=== PATIENT | female | born 2005 | race Caucasian/White ===

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

== ENCOUNTER 2025-02-04 10:13 | Outpatient (CLI) | payer OTHER, SELFPAY ==
--- OUTSIDE RECORDS SUMMARY | 2024-12-22 14:59 | XMS_ITS | Encounter Summary ---
[facility] Organization [facility] Address [address] [place] [address] Care Team Providers Care Oyster Preparer Name Role Phone Bruno Erickson MD Primary Care Provider [phone]- [phone] Encounter Details Date Type Department Care Team (Late st Contact Info) Description 12/22/2024 2:59 PM EDT - 12/22/2024 3:49 PM EDT Emergency [facility] [address] [place] [address] Discharge Disposition: Left Without Being Seen Social History Tobacco Use Types Packs/Day Years Used Date Smoking Tobacco: Never Assessed Abuse Screen Answer Date Recorded Feels Unsafe at Home or Work/School no 12/22/2024 Feels Threatened by Someone no 12/08 Does Anyone Try to Keep You From Having Contact with Others or Doing Things Outside Your Home? no 12/22/2024 Physical Signs of Abuse Present no 12/22/2024 Housing Stability Answer Date Recorded Current Living Arrangements Not on file 12/2022 Potentially Unsafe Housing Conditions Not on holli e 01/15/2023 Family and Community Support Answer Héctor e Recorded Help with Day-to-Day Activities Not on file 01/15/2023 Lonely or Isolated Not on file 01/15/2023 Employment Answer Date Recorded Do you want help finding or keeping work or a pam b? Not on file 01/15/2023 Disabilities Answer Date Recorded Concentrating, Remembering, or Making Decisions Difficulty Not on file 01/15/2023 Doing Errands Independently Difficulty Not on fi le 01/15/2023 Education Answer Date Recorded Help with school or training? Not on file Preferred Language Not on file 01/15/2023 Estimated Date of Delivery Comme nts Yes 06/26/2025 Sex and Gender Information Value Date Recorded Sex Assigned at Not on file Legal Sex Female 12:30 PM EDT Gender Identity Not on file Sexual Orientation Not on file documented as of this encounter Plan of Treatment Not on file documented as of this encounter Visit Diagnoses Not on filedocumented in this encounter Care Teams Oyster Preparer Relationship Specialty Start Date End Date Bruno Erickson MD [address] [place] [address] [place] [address] PCP - General Family Medicine 12/22/24 documented as of this encounter
--- OUTSIDE RECORDS SUMMARY | 2024-12-22 16:06 | XMS_ITS | Encounter Summary ---
Author Organization [facility] Address [address] [place] [address] Care Team Providers Care Chip Mucker Name Role Phone Bruno Erickson MD Primary Care Provider +1- [phone] Reason for Visit * Reason Comments Vaginal Bleeding - Encounter Details Date Type Department Care Team (Late st Contact Info) Description 12/22/2024 4:06 PM EDT - 12/22/2024 5:41 PM EDT Emergency [facility] EMERGENCY DEPARTMENT [address] [address] JeffSolitario MD [address] [place] [address] Threatened (Primary Dx) Discharge Disposition: Home or [...] 4:05 PM EDT Pooja Galan RN * [place] Suicide Severity Rating Scale (Screener/Recent Self-Report) Question [...] Everywhere. * Threatened Miscarriage: What to Know [id number] (Turkish) documented in this encounter Miscellaneous Notes * [...] symptoms. Pt is seeing Dr. Zarate at [facility]. Nurses Notes reviewed and agree, including [...] Component Value Units Date/Time CBC & Differential [[id number]] (Abnormal) Collected: 12/22/241615 Specimen: Blood Updated: 12/22/241622 Narrative: The following orders were created for panel order CBC & Differential. Procedure Abnormality Status --------- ------ CBC Auto Differential[[id number]] Abnormal Final result Please view results for these tests on the individual orders. hCG, Quantitative, [[id number]] Collected: 12/22/241615 Specimen: Blood Updated: 12/22/241706 HCG [...] 8,099 - 58,176 mIU/mL CBC Auto Differential [[id number]] (Abnormal) Collected: 12/22/241615 Specimen: Blood Updated: 12/22/241622 [...] diagnoses: Threatened Your Follow-Up Providers Go to [facility] EMERGENCY [facility]PARTMENT [place]. Specialty: Emergency Medicine Follow up details: If symptoms worsen [address] [facility] [address] your [facility] in 4-5 days. Contact information for after-discharge [...] - 10.80 10*3/mm3 12/22/2024 4:23 PM EDT [facility] RBC 3.78 3.77 - 5.28 10*6/mm3 12/22/2024 4:23 PM EDT [facility] Hemoglobin 11.9(L) 12.0 - 15.9 g/dL 12/22/2024 4:23 PM EDT [facility] Hematocrit 33.7(L) 34.0 - 46.6 % 12/22/2024 4:23 PM EDT [facility] MCV 89.2 79.0 - 97.0 fL 12/22/2024 4:23 PM EDT [facility] MCH 31.5 26.6 - 33.0 pg 12/22/2024 4:23 PM EDT [facility] MCHC 35.3 31.5 - 35.7 g/dL 12/22/2024 4:23 PM EDT [facility] RDW 12.8 12.3 - 15.4 % 12/22/2024 4:23 PM EDT [facility] RDW-SD 41.8 37.0 - 54.0 fl 12/22/2024 4:23 PM EDT [facility] MPV 11.4 6.0 - 12.0 fL 12/22/2024 4:23 PM EDT [facility] Platelets 241 140 - 450 10*3/mm3 12/22/2024 4:23 PM T [facility] Neutrophil % 67.2 42.7 - 76.0 % 12/22/2024 4:23 PM [facility] Lymphocyte % 26.4 19.6 - 45.3 % 12/22/2024 4:23 PM [facility] Monocyte % 4.1(L) 5.0 - 12.0 % 12/22/2024 4:23 PM [facility] Eosinophil % 1.1 0.3 - 6.2 % 12/22/2024 4:23 PM [facility] Basophil % 0.6 0.0 - 1.5 % 12/22/2024 4:23 PM [facility] Immature Grans % 0.6(H) 0.0 - 0.5 % 12/22/2024 4:23 PM [facility] Neutrophils, Absolute 5.62 1.70 - 7.00 10*3/mm3 12/22/2024 4:23 PM [facility] Lymphocytes, Absolute 2.21 0.70 - 3.10 10*3/mm3 12/22/2024 4:23 PM [facility] Monocytes, Absolute 0.34 0.10 - 0.90 10*3/mm3 12/22/2024 4:23 PM [facility] Eosinophils, Absolute 0.09 0.00 - 0.40 10*3/mm3 12/22/2024 4:23 PM [facility] Basophils, Absolute 0.05 0.00 - 0.20 10*3/mm3 12/22/2024 4:23 PM [facility] Immature Grans, Absolute 0.05 0.00 - 0.05 10*3/mm3 12/22/2024 4:23 PM [facility] Blood Venipuncture / Unknown 12/22/2024 4:16 PM EDT 12/22/2024 4:21 PM EDT us Solitario J Jeff MD LAB BLOOD ORDERABLES Final Resul t Performing Organization Address City/[facility]/ZIP Co de Phone Number [facility]
[address] [place] [address], [place] * Light Blue Top (12/22/2024 4:16 PM EDT) Extra Tube Hold for add-ons. 12/22/2024 4:32 PM EDT [facility] Comment:Auto resulted Blood Venipuncture / Unknown 12/22/2024 4:16 PM EDT 12/22/2024 4:21 PM EDT us Solitario Aguilar MD LAB BLOOD ORDER ONLY Final Resul t Performing Organization Address City/[facility] Co de Phone Number [facility]
[address] [facility] [address] [place] [address], [place] * Bates Top (12/22/2024 4:16 PM EDT) Extra Tube Hold for add-ons. 12/22/2024 4:32 PM EDT [facility] Comment:Auto resulted. Blood Venipuncture / Unknown 12/22/2024 4:16 PM EDT 12/22/2024 4:21 PM EDT us Solitario Aguilar MD LAB BLOOD ORDER ONLY Final Resul t Performing Organization Address City/[facility]/ZIP Co de Phone Number [facility]
[address] [place] [address], [place] * Gold Top - SST (12/22/2024 4:16 PM EDT) Extra Tube Hold for add-ons. 12/22/2024 4:32 PM EDT [facility] Comment:Auto resulted. Blood Venipuncture / Unknown 12/22/2024 4:16 PM EDT 12/22/2024 4:21 PM EDT us Solitario Aguilar MD LAB BLOOD ORDER ONLY Final Resul t Performing Organization Address City/[facility]/ZIP Co de Phone Number [facility]
[address] [place] [address], [place] * Lavender Top (12/22/2024 4:16 PM EDT) Extra Tube hold for add-on 12/22/2024 4:32 PM EDT [facility] Comment:Auto resulted Blood Venipuncture / Unknown 12/22/2024 4:16 PM EDT 12/22/2024 4:21 PM EDT us Solitario Aguilar MD LAB BLOOD ORDER ONLY Final Resul t Performing Organization Address [facility] Co de Phone Number [facility]
[address] [place] [address], [place] * Green Top (Gel) (12/22/2024 4:16 PM EDT) Extra Tube Hold for add-ons. 12/22/2024 4:32 PM EDT [facility] Comment:Auto resulted. Blood Venipuncture / Unknown 12/22/2024 4:16 PM EDT 12/22/2024 4:21 PM EDT us Solitario Aguilar MD LAB BLOOD ORDER ONLY Final Resul t Performing Organization Address City/[facility]/ZIP Co de Phone Number [facility]
[address] [place] [address], [place] * hCG, Quantitative, (12/22/2024 4:16 PM EDT) HCG Quantitative 39,368.00 mIU/mL 12/23/19 5:07 PM EDT [facility] Blood Venipuncture / Unknown 12/22/2024 4:16 PM EDT 12/22/2024 4:21 PM EDT Narrative [facility] - 12/22/2024 5:07 PM [...] MD LAB BLOOD ORDERABLES Final Resul t [facility]
[address] [place] [address], documented in this encounter Visit Diagnoses Diagnosis [...] 1605 documented in this encounter Care Teams Chip Mucker Relationship Specialty Start Date End Date Bruno Erickson MD [address] [place] [address] [place] [address] PCP - General Family Medicine 12/22/24 documented as of this encounter
--- OUTSIDE RECORDS SUMMARY | 2024-12-22 16:50 | XMS_ITS | Encounter Summary ---
Author Organization [facility] Address [address] [place] [address] Care Team Providers Care Government Affairs Director Name Role Phone Bruno Erickson MD Primary Care Provider +1- [phone] Encounter Details Date Type Department Care Team (Late st Contact Info) Description 12/22/2024 4:50 PM EDT Ancillary Procedure [facility] EMERGENCY [facility]PARTMENT [place] [address] [place] [address] Social History Tobacco Use Types [...] 4:05 PM EDT Pooja Galan RN * [place] Suicide Severity Rating Scale (Screener/Recent Self-Report) Question [...] on filedocumented in this encounter Care Teams Government Affairs Director Relationship Specialty Start Date End Date Bruno Erickson MD [address] [place] [address] [place] [address] PCP - General Family Medicine 12/22/24 documented as of this encounter
--- OUTSIDE RECORDS SUMMARY | 2025-02-04 10:24 | XMS_ITS | Clinical Summary ---
[facility] [address] [place] [address] Care Team Providers Care Director East Coast Sales Name Role Phone Bruno Erickson MD Primary Care Provider +1- [phone] Allergies No known active allergies Encounters Date Type Department Care Team Description 12/22/2024 4:50 PM EDT Ancillary Procedure [facility] [address] [place] [address] 12/22/2024 4:06 PM EDT - 12/22/2024 5:41 PM EDT Emergency [facility] [address] [place] [address] Jeff, Solitario Bear MD Threatened (Primary Dx) Discharge Disposition: Home or Self Care 12/22/2024 2:59 PM EDT - 12/22/2024 3:49 PM EDT Emergency [facility] [address] [facility] [place] [address] Discharge Disposition: Left Without Being Seen 12/22/2024 [...] Pneumococcal Vaccine 0-49 (1 of 1 - PPSV23, PCV20, or PCV21) 10/06/2011 04/11/2006, 02/22/2006, 01/11/2006 HPV VACCINES (2 [...] Hold for add-ons. 12/22/2024 4:32 PM EDT [facility] Comment:Auto resulted. Blood Venipuncture / Unknown 12/22/2024 4:16 PM EDT 12/22/2024 4:21 PM EDT us Solitario Aguilar MD LAB BLOOD ORDER ONLY Final Resul t Performing Organization Address City/[facility]/ZIP Co de Phone Number [facility]
[address] [facility] [address] [place] [address], [place] * Gold Top - SST (12/22/2024 4:16 PM EDT) Extra Tube Hold for add-ons. 12/22/2024 4:32 PM EDT [facility] Comment:Auto resulted. Blood Venipuncture / Unknown 12/22/2024 4:16 PM EDT 12/22/2024 4:21 PM EDT us Solitario Aguilar MD LAB BLOOD ORDER ONLY Final Resul t [facility]
[address] [facility] [address] [place] [address], [place] * Green Top (Gel) (12/22/2024 4:16 PM EDT) Extra Tube Hold for add-ons. 12/22/2024 4:32 PM EDT [facility] Comment:Auto resulted. Blood Venipuncture / Unknown 12/22/2024 4:16 PM EDT 12/22/2024 4:21 PM EDT us Solitario Aguilar MD LAB BLOOD ORDER ONLY Final Resul t [facility]
[address] [facility] [address] [place] [address], [place] * (ABNORMAL) CBC Auto Differential (12/22/2024 4:16 PM EDT) WBC 8.36 3.40 - 10.80 10*3/mm3 12/22/2024 4:23 PM EDT [facility] RBC 3.78 3.77 - 5.28 10*6/mm3 12/22/2024 4:23 PM EDT [facility] Hemoglobin 11.9(L) 12.0 - 15.9 g/dL 12/22/2024 4:23 PM EDT [facility] Hematocrit 33.7(L) 34.0 - 46.6 % 12/22/2024 4:23 PM EDT [facility] MCV 89.2 79.0 - 97.0 fL 12/22/2024 4:23 PM EDT [facility] MCH 31.5 26.6 - 33.0 pg 12/22/2024 4:23 PM EDT [facility] MCHC 35.3 31.5 - 35.7 g/dL 12/22/2024 4:23 PM EDT [facility] RDW 12.8 12.3 - 15.4 % 12/22/2024 4:23 PM EDT [facility] RDW-SD 41.8 37.0 - 54.0 fl 12/22/2024 4:23 PM EDT [facility] MPV 11.4 6.0 - 12.0 fL 12/22/2024 4:23 PM EDT [facility] Platelets 241 140 - 450 10*3/mm3 12/22/2024 4:23 PM EDT [facility] Neutrophil % 67.2 42.7 - 76.0 % 12/22/2024 4:23 PM EDT [facility] Lymphocyte % 26.4 19.6 - 45.3 % 12/22/2024 4:23 PM EDT [facility] Monocyte % 4.1(L) 5.0 - 12.0 % 12/22/2024 4:23 PM EDT [facility] Eosinophil % 1.1 0.3 - 6.2 % 12/22/2024 4:23 PM EDT [facility] Basophil % 0.6 0.0 - 1.5 % 12/22/2024 4:23 PM EDT [facility] Immature Grans % 0.6(H) 0.0 - 0.5 % 12/22/2024 4:23 PM EDT [facility] Neutrophils, Absolute 5.62 1.70 - 7.00 10*3/mm3 12/22/2024 4:23 PM EDT [facility] Lymphocytes, Absolute 2.21 0.70 - 3.10 10*3/mm3 12/22/2024 4:23 PM EDT [facility] Monocytes, Absolute 0.34 0.10 - 0.90 10*3/mm3 12/22/2024 4:23 PM EDT [facility] Eosinophils, Absolute 0.09 0.00 - 0.40 10*3/mm3 12/22/2024 4:23 PM EDT [facility] Basophils, Absolute 0.05 0.00 - 0.20 10*3/mm3 12/22/2024 4:23 PM EDT [facility] Immature Grans, Absolute 0.05 0.00 - 0.05 10*3/mm3 12/22/2024 4:23 PM EDT [facility] Blood Venipuncture / Unknown 12/22/2024 4:16 PM EDT 12/22/2024 4:21 PM EDT us Solitario Aguilar MD LAB BLOOD ORDERABLES Final Resul t [facility]
[address] [place] [address], [place] * Lavender Top (12/22/2024 4:16 PM EDT) Extra Tube hold for add-on 12/22/2024 4:32 PM EDT [facility] Comment:Auto resulted Blood Venipuncture / Unknown 12/22/2024 4:16 PM EDT 12/22/2024 4:21 PM EDT us Solitario gAuilar MD LAB BLOOD ORDER ONLY Final Resul t [facility]
[address] [facility] [address] [place] [address], [place] * Light Blue Top (12/22/2024 4:16 PM EDT) Extra Tube Hold for add-ons. 12/22/2024 4:32 PM EDT [facility] Comment:Auto resulted Blood Venipuncture / Unknown 12/22/2024 4:16 PM EDT 12/22/2024 4:21 PM EDT us Solitario Aguilar MD LAB BLOOD ORDER ONLY Final Resul t Performing Organization Address City/[facility]/ZIP Co de Phone Number [facility]
[address] [place] [address], [place] * hCG, Quantitative, (12/22/2024 4:16 PM EDT) HCG Quantitative 39,368.00 mIU/mL 12/23/19 5:07 PM EDT [facility] Blood Venipuncture / Unknown 12/22/2024 4:16 PM EDT 12/22/2024 4:21 PM EDT Narrative [facility] - 12/22/2024 5:07 PM EDT [...] MD LAB BLOOD ORDERABLES Final Resul t [facility]
[address] [facility] [address] [place] [address], [place] from Last 3 Months Insurance [facility] Care Teams Director [place] Sales Relationship Specialty Start Date End Date Bruno Erickson MD [address] [place] [address] [place] [address] PCP - General Family Medicine 12/22/24
--- OUTSIDE RECORDS SUMMARY | 2025-02-04 10:24 | XMS_ITS | Encounter Summary ---
[facility] [address] [place] [address] Care Team Providers Care Barrel Polisher Inside Name Role Phone Bruno Erickson MD Primary Care Provider +1- [phone] Encounter Details Date Type Department Care Team [...] on filedocumented in this encounter Care Teams Barrel Polisher Inside Relationship Specialty Start Date End Date Bruno Erickson MD [address] [place] [address] [place] [address] PCP - General Family Medicine 12/22/24 documented as of this encounter
--- NOTE | 2025-02-04 10:30 | US_ITS ---
PROCEDURE: US OB /MATERNAL DETAIL CLINICAL INDICATION: 20 week anatomy scan COMPARISON: US US OB <= 14 WEEKS FETUS from 12/10/2024 FINDINGS: Transabdominal sonographic images of the pelvis were obtained. From her established due date she is 19 weeks 4 days. Single viable intrauterine gestation. Cephalic position. Placenta: Right lateral posteriorplacenta grade 1. There is an average amount of fluid. The cervix appears satisfactory. Closed and measuring 3.1 cm in length. Complete survey performed and was unremarkable on the submitted images as in PACS. No discrete anomalies identified on survey imaging by technologist. Active fetus. Three-vessel cord with satisfactory umbilical cord insertion. 4- chamber heart noted. Situs, aortic arch, LVOT, RVOT, three-vessel view appear normal. Survey of brain & ventricles Unremarkable. Cerebellum, thalamus, choroid plexus, cisterna magna appear normal. Face and neck survey unremarkable. Profile, nasion, lips and nose appeared normal. Diaphragm and chest views unremarkable. Abdomen: Both kidneys noted and unremarkable. Stomach and bladder noted and satisfactory. Spine: Survey of the spine satisfactory with no anomalies identified nor imaged. Cervical, thoracic, lower spine appear normal. Both arms and legs noted. Amniotic Fluid: Adequate. MVP 4.30 cm Measurements: Average ultrasound age 20weeks 2days. Estimated due date by ultrasound age 0306/22/2025. Estimated weight 341g BPD = 20weeks 1day HC = 19weeks 6days AC = 21weeks 0 days FL = 19weeks 5days Growth Percentile= 83 Heart Rate = 149bpm Cerebellum = 18weeks 2days HC/AC is 1.09 FL/BPD is 0.67 FL/AC is 0.2 IMPRESSION: 1. Viable fetus in the cephalic presentation with a right lateral posterior placenta grade 1. 2. The fluid is within normal limits with an MVP 4.30 cm. 3. Anatomical scan appears normal. 4. biometry is consistent with the dates. Dictated by: Donn Jose MD 02/04/2025 11:25 Donn Jose MD in OV 02/04/2025 11:25
== END 2025-02-04 23:59 | disposition home or self-care (01) ==
LOC: RAD 10:14
PROVIDERS: PCP Family Medicine; Visit Provider Obstetrics & Gynecology
DX: O99.512 Diseases of the respiratory system complicating pregnancy, second trimester (principal); O20.9 Hemorrhage in early pregnancy, unspecified; J45.909 Unspecified asthma, uncomplicated; Z3A.19 19 weeks gestation of pregnancy
CPT/HCPCS: 76811

== ENCOUNTER 2025-03-12 11:15 | Outpatient (CLI) | payer OTHER, SELFPAY ==
[2025-03-12 10:49] LABS: Fetal Membrane Rupture (Rapid) Negative (Negative)
--- NOTE | 2025-03-12 11:30 | US_ITS ---
PROCEDURE: US OB FOLLOW UP CLINICAL INDICATION: position and ivan COMPARISON: US US OB <= 14 WEEKS FETUS from 12/10/2024 US US OB /MATERNAL DETAIL from 02/04/2025 FINDINGS: Transabdominal sonographic images of the pelvis were obtained. The following parameters are obtained: From her established due date she is 24weeks 4days Viable fetus in the cephalic presentation with a right posterior placenta grade 1. The cervix measures 3.08 cm in length. heart rate: 144bpm bpm. Amniotic fluid index: 10.4cm, MVP 4.45 cm No obvious anomalies evident. profile seen, stomach, bladder, kidneys, three-vessel cord, four chamber heart appear normal. IMPRESSION: 1. Viable fetus in the cephalic presentation with a right posterior placenta grade 1. 2. Fluid is within normal limits with an amniotic fluid index 10.4 cm, MVP 4.45 cm. 3. Limited anatomical scan appears normal. Dictated by: Donn Jose MD 03/12/2025 11:58 Donn Jose MD in OV 03/12/2025 11:58
--- OUTSIDE RECORDS SUMMARY | 2025-03-12 11:46 | XMS_ITS | Encounter Summary ---
Author Organization Healthcare Address [address] [id number] Care Team Providers Care Fiscal Services Manager Name Role Phone Bruno Erickson MD Primary Care Provider Geovanna vailable Reason for Visit * Reason Onset Date Comments [facility] Clinical Concern/Question 12/12/2024 Encounter Details Date Type Department Care Team (Late st Contact Info) Description 12/12/2024 Telephone Obstetrics & Gynecology [address] [place] [address] Carlos Gamboa MD [address] [place] [address] [facility] Clinical Concern/Question Social History [...] down, depressed, or hopeless Not at all 12/08 11:10 AM EDT Heather Pearce Patient Health Questionnaire-2 Score 0 12/08 11:10 AM EDT Heather Pearce * How [...] will be 12 wks tomorrow. Seen at [facility] Sun for vaginal bleeding. Pt was [...] call to yousif bolton. Best contact number: [phone] (mobile) Optimal time of day to reach caller: ANYTIME Additional comments/information from caller: None Note: Please do not reply to this message. Follow-up communication and further actions as a result of this message need to be communicated with the patient directly, if the patient is not active onMyChart. If the patient is active on MyChart, they will receive notification of the communication/outcome via [employer]. documented in this encounter Plan of Treatment [...] documented as of this encounter Care Teams Fiscal Services Manager Relationship Specialty Start Date End Date Bruno Erickson MD PCP - General Family Medicine 11/13/22 documented as of this encounter
--- OUTSIDE RECORDS SUMMARY | 2025-03-12 11:46 | XMS_ITS | Encounter Summary ---
Author Organization Healthcare Address [address] [id number] Care Team Providers Care Acute Care Nurse Practitioner Name Role Phone Bruno Erickson MD Primary Care Provider Geovanna vailable Reason for Visit * Reason Onset Date Comments Appointment 02/10/2025 Lm on vm to conf irm appt for 02/11 Encounter Details Date Type Department Care Team (Late st Contact Info) Description 02/10/2025 Telephone Obstetrics & Gynecology [address] [place] [address] Carlos Gamboa MD [address] [place] [address] Appointment (Lm on vm to confirm appt for 02/11) Social History Tobacco Use Types Packs/Day Years [...] documented as of this encounter Care Teams Acute Care Nurse Practitioner Relationship Specialty Start Date End Date Bruno Erickson MD PCP - General Family Medicine 11/13/22 documented as of this encounter
--- OUTSIDE RECORDS SUMMARY | 2025-03-12 11:46 | XMS_ITS | Encounter Summary ---
Author Organization Healthcare Address [address] [id number] Care Team Providers Care Turret Press Operator Name Role Phone Bruno Erickson MD Primary Care Provider Geovanna vailable Encounter Details Date Type Department Care Team (Late st Contact Info) Description 11/18/2024 Results Follow-Up Obstetrics & Gynecology [address] [place] [address] Carlos Gamboa MD [address] [place] [address] Social History Tobacco Use Types [...] documented as of this encounter Care Teams Turret Press Operator Relationship Specialty Start Date End Date Bruno Erickson MD PCP - General Family Medicine 11/13/22 documented as of this encounter
--- OUTSIDE RECORDS SUMMARY | 2025-03-12 11:46 | XMS_ITS | Clinical Summary ---
[facility] Organization [facility] Address [address] [place] [address] Care Team Providers Care Fast Food Server Name Role Phone Bruno Erickson MD Primary Care Provider +1- [phone] Allergies No known active allergies Encounters Date Type Department Care Team Description 12/22/2024 4:50 PM EDT Ancillary Procedure [facility] EMERGENCY DEPARTMENT [address] [place] [address] 12/22/2024 4:06 PM EDT - 12/22/2024 5:41 PM EDT Emergency [facility] EMERGENCY DEPARTMENT [address] [place] [address] Jeff, Solitario Bear MD Threatened (Primary Dx) Discharge Disposition: Home or Self Care 12/22/2024 2:59 PM EDT - 12/22/2024 3:49 PM EDT Emergency [facility] EMERGENCY DEPARTMENT [address] [facility] [place] [id number] Discharge Disposition: Left Without Being Seen 12/22/2024 [...] Hold for add-ons. 12/22/2024 4:32 PM EDT [facility] Comment:Auto resulted. Blood Venipuncture / Unknown 12/22/2024 4:16 PM EDT 12/22/2024 4:21 PM EDT us Solitario Aguilar MD LAB BLOOD ORDER ONLY Final Resul t Performing Organization Address City/[facility]/ZIP Co de Phone Number [facility]
[address] [facility] [address] [place] [address], [place] * Gold Top - SST (12/22/2024 4:16 PM EDT) Extra Tube Hold for add-ons. 12/22/2024 4:32 PM EDT [facility] Comment:Auto resulted. Blood Venipuncture / Unknown 12/22/2024 4:16 PM EDT 12/22/2024 4:21 PM EDT us Solitario Aguilar MD LAB BLOOD ORDER ONLY Final Resul t [facility]
[address] [facility] [address] [place] [address], [place] * Green Top (Gel) (12/22/2024 4:16 PM EDT) Extra Tube Hold for add-ons. 12/22/2024 4:32 PM EDT [facility] Comment:Auto resulted. Blood Venipuncture / Unknown 12/22/2024 4:16 PM EDT 12/22/2024 4:21 PM EDT us Solitario Aguilar MD LAB BLOOD ORDER ONLY Final Resul t [facility]
[address] [facility] [address] [place] [address], [place] * (ABNORMAL) CBC Auto Differential (12/22/2024 4:16 PM EDT) WBC 8.36 3.40 - 10.80 10*3/mm3 12/22/2024 4:23 PM EDT [facility] RBC 3.78 3.77 - 5.28 10*6/mm3 12/22/2024 4:23 PM EDT [facility] Hemoglobin 11.9(L) 12.0 - 15.9 g/dL 12/22/2024 4:23 PM EDT [facility] Hematocrit 33.7(L) 34.0 - 46.6 % 12/22/2024 4:23 PM EDT [facility] MCV 89.2 79.0 - 97.0 fL 12/22/2024 4:23 PM EDT [facility] MCH 31.5 26.6 - 33.0 pg 12/22/2024 4:23 PM EDT [facility] MCHC 35.3 31.5 - 35.7 g/dL 12/22/2024 4:23 PM EDT [facility] RDW 12.8 12.3 - 15.4 % 12/22/2024 4:23 PM EDT [facility] RDW-SD 41.8 37.0 - 54.0 fl 12/22/2024 4:23 PM EDT [facility] MPV 11.4 6.0 - 12.0 fL 12/22/2024 4:23 PM EDT [facility] Platelets 241 140 - 450 10*3/mm3 12/22/2024 4:23 PM EDT [facility] Neutrophil % 67.2 42.7 - 76.0 % 12/22/2024 4:23 PM EDT [facility] Lymphocyte % 26.4 19.6 - 45.3 % 12/22/2024 4:23 PM EDT [facility] Monocyte % 4.1(L) 5.0 - 12.0 % 12/22/2024 4:23 PM EDT [facility] Eosinophil % 1.1 0.3 - 6.2 % 12/22/2024 4:23 PM EDT [facility] Basophil % 0.6 0.0 - 1.5 % 12/22/2024 4:23 PM EDT [facility] Immature Grans % 0.6(H) 0.0 - 0.5 % 12/22/2024 4:23 PM EDT [facility] Neutrophils, Absolute 5.62 1.70 - 7.00 10*3/mm3 12/22/2024 4:23 PM EDT [facility] Lymphocytes, Absolute 2.21 0.70 - 3.10 10*3/mm3 12/22/2024 4:23 PM EDT [facility] Monocytes, Absolute 0.34 0.10 - 0.90 10*3/mm3 12/22/2024 4:23 PM EDT [facility] Eosinophils, Absolute 0.09 0.00 - 0.40 10*3/mm3 12/22/2024 4:23 PM EDT [facility] Basophils, Absolute 0.05 0.00 - 0.20 10*3/mm3 12/22/2024 4:23 PM EDT [facility] Immature Grans, Absolute 0.05 0.00 - 0.05 10*3/mm3 12/22/2024 4:23 PM EDT [facility] Blood Venipuncture / Unknown 12/22/2024 4:16 PM EDT 12/22/2024 4:21 PM EDT us Solitario Aguilar MD LAB BLOOD ORDERABLES Final Resul t [facility]
[address] [place] [address], [place] * Lavender Top (12/22/2024 4:16 PM EDT) Extra Tube hold for add-on 12/22/2024 4:32 PM EDT [facility] Comment:Auto resulted Blood Venipuncture / Unknown 12/22/2024 4:16 PM EDT 12/22/2024 4:21 PM EDT us Solitario Aguilar MD LAB BLOOD ORDER ONLY Final Resul t [facility]
[address] [facility] [address] [place] [address], [place] * Light Blue Top (12/22/2024 4:16 PM EDT) Extra Tube Hold for add-ons. 12/22/2024 4:32 PM EDT [facility] Comment:Auto resulted Blood Venipuncture / Unknown 12/22/2024 4:16 PM EDT 12/22/2024 4:21 PM EDT us Solitario Aguilar MD LAB BLOOD ORDER ONLY Final Resul t Performing Organization Address City/[facility]/ZIP Co de Phone Number [facility]
[address] [place] [address], [place] * hCG, Quantitative, (12/22/2024 4:16 PM EDT) HCG Quantitative 39,368.00 mIU/mL 12/23/19 5:07 PM EDT [facility] Blood Venipuncture / Unknown 12/22/2024 4:16 PM EDT 12/22/2024 4:21 PM EDT Narrative [facility] - 12/22/2024 5:07 PM EDT HCG [...] MD LAB BLOOD ORDERABLES Final Resul t [facility]
[address] [facility] [address] [place] [address], [place] from Last [address] [facility] Care Teams Fast Food Server Relationship Specialty Start Date End Date Bruno Erickson MD [address] [place] [address] [place] [address] PCP - General Family Medicine 12/22/24
--- OUTSIDE RECORDS SUMMARY | 2025-03-12 11:46 | XMS_ITS | Clinical Summary ---
Author Organization [facility] Address [address] [place] [address] Care Team Providers Care Gas Stove Servicer Helper Name Role Phone Bruno Erickson MD Primary Care Provider Geovanna vailable Allergies No known active allergies Medications * This document contains information received from the source organization and may not represent a complete record from that organization. budesonide-formo terol (Symbicort) 160-4.5 MCG/ACT inhalerIndicatio ns:Asthma, unspecified asthma severity, unspecified whether complicated, unspecified whether persistent Inhale 2 puffs 2 times a day. Rinse mouth with water after use to reduce aftertaste and incidence of candidiasis. Do not swallow. 1 g 5 Active albuterol 108 (90 Base) MCG/ACT inhalerIndicatio ns:Asthma, unspecified asthma severity, unspecified whether complicated, unspecified whether persistent,Moder ate persistent asthma without complication Inhale 1-2 puffs every 4 to 6 hours as needed for wheezing or shortness of breath. 1 each 5 Active Vit-Fe Fumarate-FA ( Vitamins) 28-0.8 MG tablet Take 1 tablet by mouth daily. 84 tablet 3 5 09/24/19 26 Active montelukast (Singulair) 10 MG tabletIndication s:Asthma, unspecified asthma severity, unspecified whether complicated, unspecified whether persistent Take 1 tablet by mouth nightly. 30 tablet 11 5 Active doxylamine (Unisom) 25 MG tabletIndication s:Nausea and/or Vomiting in Take 1 tablet by mouth nightly. May take 0.5 tablet (12.5 mg) at a time if concerned for drowsiness. Take with vitamin B6. 30 tablet 11 5 Active pyridoxine (Vitamin B-6) 25 MG tabletIndication s:Nausea and/or Vomiting in Take 1 tablet by mouth nightly. Take with Unisom at night. May increase to 1 tab (25 mg) 3 (three) times per day as needed for nausea/vomiting . 30 tablet 11 Active Additional Information Patient not taking.Reported on 12/17/2024 promethazine (Phenergan) 25 MG tabletIndication s:Nausea and/or Vomiting in Take 1 tablet by [...] Encounters Date Type Department Care Team Description 02/10/2025 Telephone Obstetrics & Gynecology [address] [place] [address] Carlos Gamboa MD Appointment (Lm on to confirm appt for 02/11) 12/17/2024 10:00 AM EDT Routine Obstetrics & Gynecology [address] [place] [address] Carlos Gamboa MD 12 weeks gestation of (Primary Dx); , unspecified gestational age; Mild intermittent asthma without complication; Other seasonal allergic rhinitis 12/17/2024 10:00 AM EDT - 12/17/2024 11:59 PM EDT Hospital Encounter [facility] [address] [place] [address] , unspecified gestational age Discharge Disposition: Home or Self Care 12/17/2024 Travel 12/12/2024 Telephone Obstetrics & Gynecology [address] [place] [address] Carlos Gamboa MD [facility] Clinical Concern/Question from Last 3 Months Immunizations Immunization Administration [...] 12/17/2024 11:08 AM EDT Plan of Treatment Health Maintenance Due Date Last Done Comments [facility]-Infant/Child/Adol SDOH Screenings 2005 Fluoride Varnish 06/06/2006 [facility]-Pneumococcal Vaccine: Pediatrics (0 to 5 Years) and At-Risk Patients (6 to 49 Years) (1 of 1 - PPSV23, PCV20, or PCV21) 10/06/2011 04/11/2006, 02/22/2006, 01/11/2006 HPV Vaccines (2 - 2-dose series) 04/19/2018 10/17/2017 [facility]- SDOH Screenings 10/06/2023 [facility]-Adult SDOH Screenings 10/06/2023 [id number] Vaccine ( - 2024- season) 2024 [facility]-RSV Vaccine: 60+ Years or [...] 10:37 AM EDT , unspecified gestational age HEPATITIS C ANTIBODY W/REFLEX TO HCV QUANT PCR Routine 11/14/2024 9:53 AM EDT , unspecified gestational age HIV 1/2 ANTIBODY/ANTIGEN SCREEN WITH REFLEX TO HIV I/II DIFFERENTIATION Routine 11/14/2024 9:53 AM EDT , unspecified gestational age CHLAMYDIA TRACHOMATIS DNA BY PCR Routine 11/14/2024 9:53 AM EDT , unspecified gestational age from Last 3 Months or Most Recently Relevant to Health Maintenance Results * OB US Nuchal Translucency (12/17/2024 10:37 AM EDT) Anatomical Region Laterality Modality Ultrasound 12/17/2024 10:1 8 AM EDT Impressions 12/18/2024 7:52 AM EDT The OB Ultrasound you requested has been resulted. Please navigate to the Imaging tab in [employer] for review. This message has been generated by the interface. Narrative Procedure Note Kayla Ayon MD - 12/18/2024 IMPRESSION: The OB Ultrasound you requested has been resulted. Please navigate to theImaging tab in [employer] for review. This message has been generated by theinterface. us Carlos Gamboa MD IMG OB US PROCEDURES Final Res ult * Chlamydia trachomatis DNA by PCR (11/14/2024 [...] EDT This test is performed by the [facility] instrument for Real Time PCR C. trachomatis and N. gonorrhea. This test is FDA approved for use with endocervical, vaginal, and urine specimens. This test is used for clinical purposes. It should not be regarded as invesigational or for research. The [facility] Clinical Microbiology [facility] is certified under the Clinical Laboratory Improvement Amendments of 1988 (CLIA-88) as qualified to perform high complexity clinical laboratory testing. Carlos Gamboa MD LAB MICROBIOLOGY - GENERAL ORD ERABLES Final Result Performing Organization Address City/[facility]/ZIP Co de Phone Number [facility] [address] [place] [address] * HIV 1 & 2 Antibody/Antigen Screen [...] ORDERABLES Final Res ult Performing Organization Address [facility]/ZIP Co de Phone Number [facility] [address] [place] [address] * Hepatitis C Antibody w/Reflex to HCV Quant PCR (11/14/2024 9:53 AM EDT) Pathologist [facility] Hepatitis C Antibody Negative Negative 11/14/2024 3:27 PM EDT [facility] Blood Venous blood specimen / Unknown Venipuncture / Unknown 11/14/2024 9:53 AM EDT 11/14/2024 2:13 PM EDT Carlos Gamboa MD LAB BLOOD ORDERABLES Final Res ult Performing Organization Address City/[facility]/ZIP Co de Phone Number [facility] [address] [place] [address] from Last 3 Months or Most Recently Relevant to Health Maintenance Insurance [employer] Care Teams Gas Stove Servicer Helper Relationship Specialty Start Date End Date Bruno Erickson MD PCP - General Family Medicine 11/13/22
--- OUTSIDE RECORDS SUMMARY | 2025-03-12 11:46 | XMS_ITS | Encounter Summary ---
Author Organization [facility] Address [address] [place] [address] Care Team Providers Care Adjusto Writer Operator Name Role Phone Bruno Erickson MD Primary Care Provider Geovanna vailable Encounter Details Date Type Department Care Team (Late st Contact Info) Description 09/13/2020 Lab Requisition [facility] [address] [place] [address] Andrea Jean Baptiste MD [address] [facility] [address] [place] [address] Cystic meniscus, unspecified meniscus, right [...] Exam (09/13/2020) Case Report Surgical Pathology Case: [id number] Authorizing Provider: Andrea Jean Baptiste MD Collected: 09/13/2020 Ordering Location: [facility] Received: 09/13/2020 0254 Pathologist: Shakir Julio MD Specimen: Knee, Right, Right knee cyst 2020 3:34 PM EDT [facility] Addendum This addendum is to document the provided clinical information: Cystic meniscus, unspecified meniscus, right knee 2020 3:34 PM EDT [facility] Addendum electronically signed by Shakir Julio MD on 2020 at 1534 EDT Comment:These results have b een appended to a previously final verified report. Final Diagnosis RIGHT KNEE CYST, EXCISION: - GANGLION CYST 2020 3:34 PM EDT [facility] at 1749 EDT Gross Description A. KNEE, RIGHT Received in formalin and labeled right knee cyst are three allen-white tissue fragments measuring 0.4 x 0.4 x 0.2 cm up to 1.0 x 0.6 x 0.4 cm. Specimen is submitted entirely in cassette A1. Sosa Gerberremigio 2020 3:34 PM EDT [facility] Note: 2020 3:34 PM EDT [facility] Tissue Structure of right knee region / Unknown 09/13/2020 09/13/2020 4:54 PM EDT us Andrea Jean Baptiste MD LAB PATHOLOGY ORDERABLES Ed ited Result - Final [facility] [address] [place] [address] documented in this encounter Visit Diagnoses Diagnosis Cystic meniscus, unspecified meniscus, right knee documented in this encounter Care Teams Adjusto Writer Operator Relationship Specialty Start Date End Date Bruno Erickson MD PCP - General Family Medicine 11/13/22 documented as of this encounter
== END 2025-03-12 23:59 | disposition home or self-care (01) ==
LOC: RAD 11:16
PROVIDERS: PCP Family Medicine; Visit Provider Nurse Practitioner Obstetrics & Gynecology
DX: O26.892 Other specified pregnancy related conditions, second trimester (principal); O99.512 Diseases of the respiratory system complicating pregnancy, second trimester; N89.8 Other specified noninflammatory disorders of vagina; J45.909 Unspecified asthma, uncomplicated; Z3A.24 24 weeks gestation of pregnancy
CPT/HCPCS: 76816; 84112

== ENCOUNTER 2025-03-23 08:17 | Outpatient (CLI) | payer OTHER, SELFPAY ==
--- OUTSIDE RECORDS SUMMARY | 2025-03-25 08:19 | XMS_ITS | Encounter Summary ---
Author Organization [facility] Address [address] [place] [address] Care Team Providers Care Coal Dumping Equipment Operator Name Role Phone Bruno Erickson MD Primary Care Provider Geovanna vailable Encounter Details Date Type Department Care Team (Late st Contact Info) Description 09/13/2020 Lab Requisition [facility] [address] [place] [address] Andrea Jean Baptiste MD [address] [facility] [address] [place] [address] Cystic meniscus, unspecified meniscus, right [...] Exam (09/13/2020) Case Report Surgical Pathology Case: [id number] Authorizing Provider: Andrea Jean Baptiste MD Collected: 09/13/2020 Ordering Location: [facility] Received: 09/13/2020 7294 Pathologist: Shakir Julio MD Specimen: Knee, Right, Right knee cyst 2020 3:34 PM EDT [facility] Addendum This addendum is to document [...] [facility] Note: 2020 3:34 PM EDT [facility] Tissue Structure of right knee region / Unknown 09/13/2020 09/13/2020 4:54 PM EDT us Andrea Jean Baptiste MD LAB PATHOLOGY ORDERABLES Ed ited Result - Final [facility] [address] [place] [address] documented in this encounter Visit Diagnoses Diagnosis Cystic meniscus, unspecified meniscus, right knee documented in this encounter Care Teams Coal Dumping Equipment Operator Relationship Specialty Start Date End Date Bruno Erickson MD PCP - General Family Medicine 11/13/22 documented as of this encounter
--- OUTSIDE RECORDS SUMMARY | 2025-03-25 08:19 | XMS_ITS | Clinical Summary ---
Author Organization [facility] Address [address] [place] [address] Care Team Providers Care Protection Mgr Name Role Phone Bruno Erickson MD Primary [...] Description 02/10/2025 Telephone Obstetrics & Gynecology [address] [place] [address] Carlos Gamboa MD Appointment (Lm on to confirm appt for 02/11) from Last 3 Months Immunizations Immunization Administration [...] SDOH Screenings 10/06/2023 [facility]-Adult SDOH Screenings 10/06/2023 [id number] Vaccine ( - season) 2024 [facility]-RSV Vaccine: [...] Procedure Name Priority Date/Time Associated Diagnosis Comments HEPATITIS C ANTIBODY W/REFLEX TO HCV QUANT PCR Routine 11/14/2024 9:53 AM EDT , unspecified gestational age HIV 1/2 ANTIBODY/ANTIGEN SCREEN WITH REFLEX TO HIV I/II DIFFERENTIATION Routine 11/14/2024 9:53 AM EDT , unspecified gestational age CHLAMYDIA TRACHOMATIS DNA BY PCR Routine 11/14/2024 9:53 AM EDT , unspecified gestational age from Last 3 Months or Most Recently Relevant to Health Maintenance Results * Chlamydia trachomatis DNA by PCR (11/14/2024 9:53 AM EDT) Chlamydia trachomatis DNA PCR Result Not Detected Not Detected 11/16/2024 10:56 AM EDT [facility] Urine Urine specimen obtained by clean catch procedure / Unknown Non-blood Collection / Unknown 11/14/2024 9:53 AM EDT 11/14/2024 2:52 PM EDT Narrative [facility] - 11/16/2024 10:56 AM EDT This test is performed by the [employer] instrument for Real Time PCR C. trachomatis and N. gonorrhea. This test is FDA approved for use with endocervical, vaginal, and urine specimens. This test is used for clinical purposes. It should not be regarded as invesigational or for research. The [facility] Clinical Microbiology Laboratory is certified under the Clinical Laboratory Improvement Amendments of 1988 (CLIA-88) as qualified to perform high complexity clinical laboratory testing. us Carlos Gamboa MD LAB MICROBIOLOGY - GENERAL ORD ERABLES Final Result [facility] [address] [place] [address] * HIV 1 & 2 Antibody/Antigen Screen (11/14/2024 9:53 AM EDT) Pathologist [facility] HIV 1 & 2 Antibody/Antigen Screen Non Reactive Non Reactive 11/14/2024 3:27 PM EDT [facility] Comment:Screening for HIV 1 & 2 antibodies, and P24 antigen is NONREACTIVE. No confirmatory testing is required. Blood Venous blood specimen / Unknown Venipuncture / Unknown 11/14/2024 9:53 AM EDT 11/14/2024 2:13 PM EDT us Carlos Gamboa MD LAB BLOOD ORDERABLES Final Res ult Performing Organization Address [facility]/ZIP Co de Phone Number [facility] [address] [place] [address] * Hepatitis C Antibody w/Reflex to HCV Quant PCR (11/14/2024 9:53 AM EDT) Pathologist [facility] Hepatitis C Antibody Negative Negative 11/14/2024 3:27 PM EDT [facility] Blood Venous blood specimen / Unknown Venipuncture / Unknown 11/14/2024 9:53 AM EDT 11/14/2024 2:13 PM EDT us Carlos Gamboa MD LAB BLOOD ORDERABLES Final Res ult Performing Organization Address City/[facility]/ZIP Co de Phone Number [facility] [address] [place] [address] from Last 3 Months or Most Recently Relevant to Health Maintenance Insurance [employer] Care Teams Protection Mgr Relationship Specialty Start Date End Date Bruno Erickson MD PCP - General Family Medicine 11/13/22
--- OUTSIDE RECORDS SUMMARY | 2025-03-25 08:19 | XMS_ITS | Encounter Summary ---
Author Organization [facility] Address [address] [place] [id number] Care Team Providers Care Immigration Specialist Name Role Phone Bruno Erickson MD Primary Care Provider Geovanna vailable Reason for Visit * Reason Onset Date Comments Appointment 02/10/2025 Lm on vm to conf irm appt for 02/11 Encounter Details Date Type Department Care Team (Late st Contact Info) Description 02/10/2025 Telephone Obstetrics & Gynecology [address] [place] [address] Carlos Gamboa MD [address] [place] [address] Appointment (Lm on vm to [...] documented as of this encounter Care Teams Immigration Specialist Relationship Specialty Start Date End Date Bruno Erickson MD PCP - General Family Medicine 11/13/22 documented as of this encounter
--- OUTSIDE RECORDS SUMMARY | 2025-03-25 08:19 | XMS_ITS | Clinical Summary ---
[facility] Organization [facility] Address [address] [place] [address] Care Team Providers Care Street Cleaner Name Role Phone Bruno Erickson MD Primary Care Provider +1- [phone] Allergies No known active allergies Social History Tobacco Use Types Packs/Day Years [...] 025 INFLUENZA VACCINE Completed 12/17/2024, , 02/06/2020 Insurance [facility] [place] [address] [facility] Care Teams Street Cleaner Relationship Specialty Start Date End Date Bruno Erickson MD [address] [place] [address] [place] [address] PCP - General Family Medicine 12/22/24
== END 2025-03-23 23:59 | disposition home or self-care (01) ==
LOC: LAB.DROPOF 03-25 08:17
PROVIDERS: PCP Family Medicine; Visit Provider Nurse Practitioner Family
DX: J02.9 Acute pharyngitis, unspecified (principal)
CPT/HCPCS: 87070; 87077

== ENCOUNTER 2025-03-25 10:50 | Outpatient (CLI) | payer OTHER, SELFPAY ==
[2025-03-25 12:20] LABS: Hematocrit 32.3 % (37.0-47.0); Hemoglobin 10.9 g/dL (12.2-16.2); Immature Granulocytes % 0.9 %; Mean Corpuscular HGB Conc 33.7 g/dL (31.8-35.4); Mean Corpuscular Hemoglobin 30.9 pg (27.0-31.2); Mean Corpuscular Volume 91.5 fl (81-99); Nucleated Red Blood Cells % 0 %; Platelet Count 219 K/mm3 (142-424); Red Blood Count 3.53 M/mm3 (4.20-5.40); Red Cell Distribution Width-SD 45.5 fL; White Blood Count 7.8 K/mm3 (4.5-13.0)
[2025-03-25 12:21] LABS: Glucose 1 Hour 127 mg/dL (74-100)
--- OUTSIDE RECORDS SUMMARY | 2025-03-25 12:25 | XMS_ITS | Clinical Summary ---
Author Organization [facility] Address [address] [place] [address] Care Team Providers Care Practice Professional Name Role Phone Bruno Erickson MD [...] Description 02/10/2025 Telephone Obstetrics & Gynecology [address] [place] [address] Carlos Gamboa MD Appointment (Lm [...] SDOH Screenings 10/06/2023 [facility]-Adult SDOH Screenings 10/06/2023 [id number] Vaccine ( - season) 2024 [facility]-RSV Vaccine: [...] Detected Not Detected 11/16/2024 10:56 AM EDT [facility] Urine Urine specimen obtained by clean catch procedure / Unknown Non-blood Collection / Unknown 11/14/2024 9:53 AM EDT 11/14/2024 2:52 PM EDT Narrative [facility] - 11/16/2024 10:56 AM EDT This test is performed by the P[employer] instrument for Real Time PCR C. trachomatis and N. gonorrhea. This test is FDA approved for use with endocervical, vaginal, and urine specimens. This test is used for clinical purposes. It should not be regarded as invesigational or for research. The [facility] Clinical Microbiology Laboratory is certified under the Clinical Laboratory Improvement Amendments of 1988 (CLIA-88) as qualified to perform high complexity clinical laboratory testing. us Carlos Gamboa MD LAB MICROBIOLOGY - GENERAL ORD ERABLES Final Result [facility] [address] [place] [address] * HIV 1 & 2 Antibody/Antigen Screen (11/14/2024 9:53 AM EDT) Pathologist [facility] [place] HIV 1 & 2 Antibody/Antigen Screen Non Reactive Non Reactive 11/14/2024 3:27 PM EDT [facility] Comment:Screening for HIV 1 & 2 antibodies, and P24 antigen is NONREACTIVE. No confirmatory testing is required. Blood Venous blood specimen / Unknown Venipuncture / Unknown 11/14/2024 9:53 AM EDT 11/14/2024 2:13 PM EDT us Carlos Gamboa MD LAB BLOOD ORDERABLES Final Res ult Performing Organization Address [facility]/ZIP Co de Phone Number [facility] [address] [place] [address] * Hepatitis C Antibody w/Reflex to HCV Quant PCR (11/14/2024 9:53 AM EDT) Pathologist [facility] [place] Hepatitis C Antibody Negative Negative 11/14/2024 3:27 PM EDT [facility] Blood Venous blood specimen / Unknown Venipuncture / Unknown 11/14/2024 9:53 AM EDT 11/14/2024 2:13 PM EDT us Carlos Gamboa MD LAB BLOOD ORDERABLES Final Res ult Performing Organization Address City/[facility]/ZIP Co de Phone Number [facility] [address] [place] [address] from Last 3 Months or Most Recently Relevant to Health Maintenance Insurance [employer] Care Teams Practice Professional Relationship Specialty Start Date End Date Bruno Erickson MD PCP - General Family Medicine 11/13/22
--- OUTSIDE RECORDS SUMMARY | 2025-03-25 12:25 | XMS_ITS | Encounter Summary ---
Author Organization [facility] Address [address] [place] [address] Care Team Providers Care Foreign Language Interpreter Name Role Phone Bruno Erickson MD Primary Care Provider Geovanna vailable Encounter Details Date Type Department Care Team (Late st Contact Info) Description 09/13/2020 Lab Requisition [facility] [address] [place] [address] Andrea Jean Baptiste MD [address] [facility] [address] [place] [address] Cystic meniscus, unspecified meniscus, right [...] Exam (09/13/2020) Case Report Surgical Pathology Case: [id number] Authorizing Provider: Andrea Jean Baptiste MD Collected: 09/13/2020 Ordering Location: [facility] Received: 09/13/2020 3164 Pathologist: Shakir Julio MD Specimen: Knee, Right, Right knee cyst 2020 3:34 PM EDT [facility] Addendum This addendum is to document [...] [facility]ALTHCARE LAB Note: 2020 3:34 PM EDT [facility] Tissue Structure of right knee region / Unknown 09/13/2020 09/13/2020 4:54 PM EDT us Andrea Jean Baptiste MD LAB PATHOLOGY ORDERABLES Ed ited Result - Final [facility] [address] [place] [address] documented in this encounter Visit Diagnoses Diagnosis Cystic meniscus, unspecified meniscus, right knee documented in this encounter Care Teams Foreign Language Interpreter Relationship Specialty Start Date End Date Bruno Erickson MD PCP - General Family Medicine 11/13/22 documented as of this encounter
--- OUTSIDE RECORDS SUMMARY | 2025-03-25 12:25 | XMS_ITS | Encounter Summary ---
Author Organization [facility] Address [address] [place] [id number] Care Team Providers Care Orthopedic Physician Name Role Phone Bruno Erickson MD Primary Care Provider Geovanna vailable Reason for Visit * Reason Onset Date Comments Appointment 02/10/2025 Lm on vm to conf irm appt for 02/11 Encounter Details Date Type Department Care Team (Late st Contact Info) Description 02/10/2025 Telephone Obstetrics & Gynecology [address] [place] [address] Carlos Gamboa MD [address] [place] [address] Appointment (Lm on vm to [...] documented as of this encounter Care Teams Orthopedic Physician Relationship Specialty Start Date End Date Bruno Erickson MD PCP - General Family Medicine 11/13/22 documented as of this encounter
--- OUTSIDE RECORDS SUMMARY | 2025-03-25 12:25 | XMS_ITS | Clinical Summary ---
[facility] Address [address] [place] [address] Care Team Providers Care Pipeline Executive Name Role Phone Bruno Erickson MD Primary Care Provider +1- [phone] Allergies No known active allergies Social History [...] INFLUENZA VACCINE Completed 12/17/2024, , 02/06/2020 Insurance [facility] [place] [address] [facility] Care Teams Pipeline Executive Relationship Specialty Start Date End Date Bruno Erickson MD [address] [place] [address] [place] [address] PCP - General Family Medicine 12/22/24
[2025-03-25 16:27] LABS: RPR W/RFX Titers Nonreactive (Nonreactive)
== END 2025-03-25 23:59 | disposition home or self-care (01) ==
LOC: LAB 10:51
PROVIDERS: PCP Family Medicine; Visit Provider Nurse Practitioner Obstetrics & Gynecology
DX: O99.519 Diseases of the respiratory system complicating pregnancy, unspecified trimester (principal); J45.909 Unspecified asthma, uncomplicated; Z3A.00 Weeks of gestation of pregnancy not specified
CPT/HCPCS: 36415; 82947; 85025; 86592

== ENCOUNTER 2025-03-25 18:50 | Outpatient (CLI) | payer OTHER, SELFPAY ==
--- OUTSIDE RECORDS SUMMARY | 2025-03-25 18:53 | XMS_ITS | Encounter Summary ---
Author Organization [facility] Address [address] [place] [id number] Care Team Providers Care Center Medical And Lab Director Name Role Phone Bruno Erickson MD Primary Care Provider Geovanna vailable Reason for Visit * Reason Onset Date Comments Appointment 02/10/2025 Lm on vm to conf irm appt for 02/11 Encounter Details Date Type Department Care Team (Late st Contact Info) Description 02/10/2025 Telephone Obstetrics & Gynecology [address] [place] [address] Carlos Gamboa MD [address] [place] [address] Appointment (Lm on vm to [...] documented as of this encounter Care Teams Center Medical And Lab Director Relationship Specialty Start Date End Date Bruno Erickson MD PCP - General Family Medicine 11/13/22 documented as of this encounter
--- OUTSIDE RECORDS SUMMARY | 2025-03-25 18:53 | XMS_ITS | Clinical Summary ---
Author Organization [facility] Address [address] [place] [address] Care Team Providers Care Crystal Slicer Name Role Phone Bruno Erickson MD Primary [...] Description 02/10/2025 Telephone Obstetrics & Gynecology [address] [place] [address] Carlos Gamboa MD Appointment (Lm [...] SDOH Screenings 10/06/2023 [facility]-Adult SDOH Screenings 10/06/2023 [id number] Vaccine ( - season) 2024 [facility]-RSV Vaccine: [...] EDT This test is performed by the [employer] instrument for Real Time PCR C. trachomatis and N. gonorrhea. This test is FDA approved for use with endocervical, vaginal, and urine specimens. This test is used for clinical purposes. It should not be regarded as invesigational or for research. The [facility] Clinical Microbiology Laboratory is certified under the Clinical Laboratory Improvement Amendments of 1988 (CLIA-88) as qualified to perform high complexity clinical laboratory testing. us Carlos Gamboa MD LAB MICROBIOLOGY - GENERAL ORD ERABLES Final Result [facility] [address] [place] [address] * HIV 1 & 2 Antibody/Antigen Screen (11/14/2024 9:53 AM EDT) Pathologist [facility] HIV 1 & 2 Antibody/Antigen Screen Non [...] ORDERABLES Final Res ult Performing Organization Address [facility]/ZIP Co de Phone Number [facility] [address] [place] [address] * Hepatitis C Antibody w/Reflex to HCV Quant PCR (11/14/2024 9:53 AM EDT) Pathologist [facility] Hepatitis C Antibody Negative Negative 11/14/2024 3:27 PM EDT [facility] Blood Venous blood specimen / Unknown Venipuncture / Unknown 11/14/2024 9:53 AM EDT 11/14/2024 2:13 PM EDT us Carlos Gamboa MD LAB BLOOD ORDERABLES Final Res ult Performing Organization Address City/[facility]/ZIP Co de Phone Number [facility] [address] [place] [address] from Last 3 Months or Most Recently Relevant to Health Maintenance Insurance [employer] Care Teams Crystal Slicer Relationship Specialty Start Date End Date Bruno Erickson MD PCP - General Family Medicine 11/13/22
--- OUTSIDE RECORDS SUMMARY | 2025-03-25 18:53 | XMS_ITS | Clinical Summary ---
[facility] Address [address] [place] [address] Care Team Providers Care Ornament Stitcher Name Role Phone Bruno Erickson MD Primary Care Provider +1- [phone] Allergies No known active allergies Social History [...] INFLUENZA VACCINE Completed 12/17/2024, , 02/06/2020 Insurance [facility] [place] [address] [facility] Care Teams Ornament Stitcher Relationship Specialty Start Date End Date Bruno Erickson MD [address] [place] [address] [place] [address] PCP - General Family Medicine 12/22/24
--- OUTSIDE RECORDS SUMMARY | 2025-03-25 18:53 | XMS_ITS | Encounter Summary ---
Author Organization [facility] Address [address] [place] [address] Care Team Providers Care Health Promotion Specialist Name Role Phone Bruno Erickson MD Primary Care Provider Geovanna vailable Encounter Details Date Type Department Care Team (Late st Contact Info) Description 09/13/2020 Lab Requisition [facility] [address] [place] [address] Andrea Jean Baptiste MD [address] [facility] [address] [place] [address] Cystic meniscus, unspecified meniscus, right [...] Exam (09/13/2020) Case Report Surgical Pathology Case: [id number] Authorizing Provider: Andrea Jean Baptiste MD Collected: 09/13/2020 Ordering Location: [facility] Received: 09/13/2020 6354 Pathologist: Shakir Julio MD Specimen: Knee, Right, Right knee cyst 2020 3:34 PM EDT [facility] Addendum This addendum is to document [...] HEALTHCARE LAB Note: 2020 3:34 PM EDT [facility] Tissue Structure of right knee region / Unknown 09/13/2020 09/13/2020 4:54 PM EDT us Andrea Jean Baptiste MD LAB PATHOLOGY ORDERABLES Ed ited Result - Final [facility] [address] [place] [address] documented in this encounter Visit Diagnoses Diagnosis Cystic meniscus, unspecified meniscus, right knee documented in this encounter Care Teams Health Promotion Specialist Relationship Specialty Start Date End Date Bruno Erickson MD PCP - General Family Medicine 11/13/22 documented as of this encounter
[2025-03-25 18:58] VITALS: BMI 24.3
[2025-03-25 19:15] LABS: Microscopic, Urine URINE MICROSCOPIC (MICROSCOPIC)
[2025-03-25 19:19] VITALS: BP 112/65; PULSE 89; RESP 16; TEMP 36.7; O2SAT 99; BMI 24.3
[2025-03-25 19:23] LABS: Bilirubin,Urine Negative (Negative); Color,Urine YELLOW (Yellow); Glucose,Urine (UA) Negative (Negative); Ketones,Urine TRACE (Negative); Leukocyte Esterase,Urine Negative (Negative); PH,Urine 6.5 (5.0-8.5); Protein,Urine Negative (Negative); Specific Gravity, Urine 1.025 (1.005-1.030); Urobilinogen,Urine 1.0 EU/dl (0.2)
[2025-03-25 19:32] LABS: Bacteria,Urine 3+ /lpf
== END 2025-03-25 20:38 | disposition home or self-care (01) ==
LOC: OBOUT 18:52 → OB 18:53
PROVIDERS: PCP Family Medicine; Visit Provider Obstetrics & Gynecology
DX: O36.8120 Decreased fetal movements, second trimester, not applicable or unspecified (principal); Z3A.27 27 weeks gestation of pregnancy
CPT/HCPCS: 81001; 87086; 99212

== ENCOUNTER 2025-03-26 11:58 | Outpatient (CLI) | payer OTHER, SELFPAY ==
--- NOTE | 2025-03-26 12:15 | US_ITS ---
PROCEDURE: US OB BIOPHYSICAL PROFILE CLINICAL INDICATION: non reactive nst COMPARISON: US US OB <= 14 WEEKS FETUS from 12/10/2024 US US OB /MATERNAL DETAIL from 02/04/2025 US US OB FOLLOW UP from 03/12/2025 FINDINGS: Transabdominal sonographic images of the uterus were obtained. From her established due date she is 26weeks 5days. The following parameters are obtained: Viable Fetus in the cephalic presentation with a posterior placenta grade 1. Cervix measures 3.68 cm in length. Measurements: heart Rate = 144bpm Amniotic fluid index: 14.95cm, MVP 6.07 cm Qualitative AFV:2 Breathing movements: 2 Gross Body Movements: 2 Tone: 2 Biophysical profile score: 8 No obvious anomalies evident.Kidneys, stomach, bladder, four-chamber heart, three-vessel cord appear normal. There is mild bilateral renal pelvis dilation measuring 4.1 mm and 3.4 mm. IMPRESSION: 1. Viable fetus in the cephalic presentation with a posterior placenta grade 1. 2. The fluid is within normal limits with an amniotic fluid index 14.95 cm, MVP 6.07 cm. 3. Biophysical profile is 8/8 with good breathing movement and movement seen. 4. There is mild bilateral renal pelvis dilation measuring 4.1 mm and 3.4 mm. Suggest follow-up later in . 5. The rest of the limited anatomical scan appears normal. Dictated by: Donn Jose MD 03/26/2025 15:48 Donn Jose MD in OV 03/26/2025 15:48
--- OUTSIDE RECORDS SUMMARY | 2025-03-26 12:29 | XMS_ITS | Clinical Summary ---
[facility] Address [address] [place] [address] Care Team Providers Care Financial Services Officer Name Role Phone Bruno Erickson MD Primary Care Provider +1- [phone] Allergies No known active allergies Social History [...] , 02/06/2020 Insurance [facility]5 [place] [address] [facility] Care Teams Financial Services Officer Relationship Specialty Start Date End Date Bruno Erickson MD [address] [place] [address] PCP - General Family Medicine 12/22/24
--- OUTSIDE RECORDS SUMMARY | 2025-03-26 12:29 | XMS_ITS | Encounter Summary ---
Author Organization [facility] Address [address] [place] [address] Care Team Providers Care Head Strength And Conditioning Coach Name Role Phone Bruno Erickson MD Primary Care Provider Geovanna vailable Encounter Details Date Type Department Care Team (Late st Contact Info) Description 09/13/2020 Lab Requisition [facility] [address] [place] [address] Andrea Jean Baptiste MD [address] [facility] [address] [place] [address] Cystic meniscus, unspecified meniscus, right [...] Exam (09/13/2020) Case Report Surgical Pathology Case: [id number] Authorizing Provider: Andrea Jean Baptiste MD Collected: 09/13/2020 Ordering Location: [facility] Received: 09/13/2020 4674 Pathologist: Shakir Julio MD Specimen: Knee, Right, Right knee cyst 2020 3:34 PM EDT [email or web address] Addendum This addendum is to document [...] HEALTHCARE LAB Note: 2020 3:34 PM EDT [facility] Tissue Structure of right knee region / Unknown 09/13/2020 09/13/2020 4:54 PM EDT us Andrea Jean Baptiste MD LAB PATHOLOGY ORDERABLES Ed ited Result - Final [facility] [address] [place] [address] documented in this encounter Visit Diagnoses Diagnosis Cystic meniscus, unspecified meniscus, right knee documented in this encounter Care Teams Head Strength And Conditioning Coach Relationship Specialty Start Date End Date Bruno Erickson MD PCP - General Family Medicine 11/13/22 documented as of this encounter
--- OUTSIDE RECORDS SUMMARY | 2025-03-26 12:29 | XMS_ITS | Encounter Summary ---
Author Organization [facility] Address [address] [place] [id number] Care Team Providers Care [employer] Maintenance Worker Name Role Phone Bruno Erickson MD Primary Care Provider Geovanna vailable Reason for Visit * Reason Onset Date Comments Appointment 02/10/2025 Lm on vm to conf irm appt for 02/11 Encounter Details Date Type Department Care Team (Late st Contact Info) Description 02/10/2025 Telephone Obstetrics & Gynecology [address] [place] [address] Carlos Gamboa MD [address] [place] [address] Appointment (Lm on vm to [...] documented as of this encounter Care Teams [employer] Maintenance Worker Relationship Specialty Start Date End Date Bruno Erickson MD PCP - General Family Medicine 11/13/22 documented as of this encounter
--- OUTSIDE RECORDS SUMMARY | 2025-03-26 12:29 | XMS_ITS | Clinical Summary ---
Author Organization [facility] Address [address] [place] [address] Care Team Providers Care Special Educator Name Role Phone Bruno Erickson MD [...] Description 02/10/2025 Telephone Obstetrics & Gynecology [address] [place] [address] Carlos Gamboa MD Appointment (Lm [...] SDOH Screenings 10/06/2023 [facility]-Adult SDOH Screenings 10/06/2023 [id number] Vaccine ( - season) 2024 [facility]-RSV Vaccine: [...] Detected Not Detected 11/16/2024 10:56 AM EDT [facility] Urine Urine specimen obtained by clean catch procedure / Unknown Non-blood Collection / Unknown 11/14/2024 9:53 AM EDT 11/14/2024 2:52 PM EDT Narrative [facility] - 11/16/2024 10:56 AM EDT This test is performed by the [employer] instrument for Real Time PCR C. trachomatis and N. gonorrhea. This test is FDA approved for use with endocervical, vaginal, and urine specimens. This test is used for clinical purposes. It should not be regarded as invesigational or for research. The [facility] Clinical Microbiology Laboratory is certified under the Clinical Laboratory Improvement Amendments of 1988 (CLIA-88) as qualified to perform high complexity clinical laboratory testing. us Carlos Gamboa MD LAB MICROBIOLOGY - GENERAL ORD ERABLES Final Result [facility] [address] [place] [address] * HIV 1 & 2 Antibody/Antigen Screen (11/14/2024 9:53 AM EDT) Pathologist [facility] HIV 1 & 2 Antibody/Antigen Screen Non Reactive Non Reactive 11/14/2024 3:27 PM EDT [facility] Comment:Screening for HIV 1 & 2 antibodies, and P24 antigen is NONREACTIVE. No confirmatory testing is required. Blood Venous blood specimen / Unknown Venipuncture / Unknown 11/14/2024 9:53 AM EDT 11/14/2024 2:13 PM EDT us Carlos Gamboa MD LAB BLOOD ORDERABLES Final Res ult Performing Organization Address [facility]/ZIP Co de Phone Number [facility] [address] [place] [address] * Hepatitis C Antibody w/Reflex to HCV Quant PCR (11/14/2024 9:53 AM EDT) Pathologist [facility] [place] Hepatitis C Antibody Negative Negative 11/14/2024 3:27 PM EDT [facility] Blood Venous blood specimen / Unknown Venipuncture / Unknown 11/14/2024 9:53 AM EDT 11/14/2024 2:13 PM EDT us Carlos Gamboa MD LAB BLOOD ORDERABLES Final Res ult Performing Organization Address City/[facility]/ZIP Co de Phone Number [facility] [address] [place] [address] from Last 3 Months or Most Recently Relevant to Health Maintenance Insurance [employer] Care Teams Special Educator Relationship Specialty Start Date End Date Bruno Erickson MD PCP - General Family Medicine 11/13/22
== END 2025-03-26 23:59 | disposition home or self-care (01) ==
LOC: RAD 11:58
PROVIDERS: PCP Family Medicine; Visit Provider Obstetrics & Gynecology
DX: O28.8 Other abnormal findings on antenatal screening of mother (principal); O99.512 Diseases of the respiratory system complicating pregnancy, second trimester; J45.909 Unspecified asthma, uncomplicated; O35.EXX0 Maternal care for other (suspected) fetal abnormality and damage, fetal genitourinary anomalies, not applicable or unspecified; Z3A.26 26 weeks gestation of pregnancy
CPT/HCPCS: 76819

== ENCOUNTER 2025-04-03 07:28 | Outpatient (CLI) | payer OTHER, SELFPAY ==
--- NOTE | 2025-04-03 07:30 | US_ITS ---
PROCEDURE: US OB BIOPHYSICAL PROFILE CLINICAL INDICATION: needs BPP 04/03/25 COMPARISON: No exams were available for comparison FINDINGS: Transabdominal sonographic images of the uterus were obtained. From her established due date she is 27weeks 6days. The following parameters are obtained: Viable Fetus in the breech presentation with a posterior placenta grade 1. The cervix measures 4.46 cm in length. Measurements: heart Rate = 143bpm Amniotic fluid index: 13.66cm, MVP 4.02 cm Qualitative AFV:2 Breathing movements: 2 Gross Body Movements: 2 Tone: 2 Biophysical profile score: 8 No obvious anomalies evident.Kidneys, stomach, bladder, four-chamber heart, three-vessel cord appear normal. There is mild bilateral renal pelvis dilation measuring 4 mm. IMPRESSION: 1. Viable fetus in the breech presentation with a posterior placenta grade 1. 2. The fluid is within normal limits with an amniotic fluid index 13.66 cm, MVP 4.02 cm. 3. Biophysical profile is 8/8 with good breathing movement and movement seen. 4. There is mild bilateral renal pelvis dilation. 5. Limited anatomical scan appears normal. Dictated by: Donn Jose MD 04/03/2025 17:00 Donn Jose MD in OV 04/03/2025 17:00
--- OUTSIDE RECORDS SUMMARY | 2025-04-03 07:30 | XMS_ITS | Encounter Summary ---
Author Organization [facility] Address [address] [place] [address] Care Team Providers Care Home School Teacher Name Role Phone Bruno Erickson MD Primary Care Provider Geovanna vailable Encounter Details Date Type Department Care Team (Late st Contact Info) Description 09/13/2020 Lab Requisition [facility] [address] [place] [address] Andrea Jean Baptiste MD [address] [facility] [address] [place] [address] Cystic meniscus, unspecified meniscus, right [...] Exam (09/13/2020) Case Report Surgical Pathology Case: [id number] Authorizing Provider: Andrea Jean Baptiste MD Collected: 09/13/2020 Ordering Location: [facility] Received: 09/13/2020 8904 Pathologist: Shakir Julio MD Specimen: Knee, Right, Right knee cyst 2020 3:34 PM EDT [facility] Addendum This addendum is to document [...] HEALTHCARE LAB Note: 2020 3:34 PM EDT [facility] Tissue Structure of right knee region / Unknown 09/13/2020 09/13/2020 4:54 PM EDT us Andrea Jean Baptiste MD LAB PATHOLOGY ORDERABLES Ed ited Result - Final [facility] [address] [place] [address] documented in this encounter Visit Diagnoses Diagnosis Cystic meniscus, unspecified meniscus, right knee documented in this encounter Care Teams Home School Teacher Relationship Specialty Start Date End Date Bruno Erickson MD PCP - General Family Medicine 11/13/22 documented as of this encounter
--- OUTSIDE RECORDS SUMMARY | 2025-04-03 07:30 | XMS_ITS | Clinical Summary ---
[facility] Address [address] [place] [address] Care Team Providers Care Dietetic Assistant Name Role Phone Bruno Erickson MD Primary Care Provider +1- [phone] Allergies No known active allergies Social History [...] INFLUENZA VACCINE Completed 12/17/2024, , 02/06/2020 Insurance [facility] [place] [address] [facility] Care Teams Dietetic Assistant Relationship Specialty Start Date End Date Bruno Erickson MD [address] [place] [address] PCP - General Family Medicine 12/22/24
--- OUTSIDE RECORDS SUMMARY | 2025-04-03 07:30 | XMS_ITS | Clinical Summary ---
Author Organization [facility] Address [address] [place] [address] Care Team Providers Care 911 Emergency Dispatcher Name Role Phone Bruno Erickson MD Primary [...] Description 02/10/2025 Telephone Obstetrics & Gynecology [address] [place] [address] Carlos Gamboa MD Appointment (Lm [...] SDOH Screenings 10/06/2023 [facility]-Adult SDOH Screenings 10/06/2023 [id number] Vaccine ( - season) 2024 [facility]-RSV Vaccine: [...] Detected Not Detected 11/16/2024 10:56 AM EDT [facility] Urine Urine specimen obtained by clean catch procedure / Unknown Non-blood Collection / Unknown 11/14/2024 9:53 AM EDT 11/14/2024 2:52 PM EDT Narrative [facility] - 11/16/2024 10:56 AM EDT This test is performed by the [employer] instrument for Real Time PCR C. trachomatis and N. gonorrhea. This test is FDA approved for use with endocervical, vaginal, and urine specimens. This test is used for clinical purposes. It should not be regarded as invesigational or for research. The [facility] Clinical Microbiology Laboratory is certified under the Clinical Laboratory Improvement Amendments of 1988 (CLIA-88) as qualified to perform high complexity clinical laboratory testing. us Carlos Gamboa MD LAB MICROBIOLOGY - GENERAL ORD ERABLES Final Result [facility] [address] [place] [address] * HIV 1 & 2 Antibody/Antigen Screen (11/14/2024 9:53 AM EDT) Pathologist [facility] HIV 1 & 2 Antibody/Antigen Screen Non Reactive Non Reactive 11/14/2024 3:27 PM EDT [facility] Comment:Screening for HIV 1 & 2 antibodies, and P24 antigen is NONREACTIVE. No confirmatory testing is required. Blood Venous blood specimen / Unknown Venipuncture / Unknown 11/14/2024 9:53 AM EDT 11/14/2024 2:13 PM EDT us Carlos Gamboa MD LAB BLOOD ORDERABLES Final Res ult Performing Organization Address [facility]/ZIP Co de Phone Number [facility] [address] [place] [address] * Hepatitis C Antibody w/Reflex to HCV Quant PCR (11/14/2024 9:53 AM EDT) Pathologist [facility] Hepatitis C Antibody Negative Negative 11/14/2024 3:27 PM EDT [facility] Blood Venous blood specimen / Unknown Venipuncture / Unknown 11/14/2024 9:53 AM EDT 11/14/2024 2:13 PM EDT us Carlos Gamboa MD LAB BLOOD ORDERABLES Final Res ult Performing Organization Address City/[facility]/ZIP Co de Phone Number [facility] [address] [place] [address] from Last 3 Months or Most Recently Relevant to Health Maintenance Insurance [employer] Care Teams 911 Emergency Dispatcher Relationship Specialty Start Date End Date Bruno Erickson MD PCP - General Family Medicine 11/13/22
--- OUTSIDE RECORDS SUMMARY | 2025-04-03 07:30 | XMS_ITS | Encounter Summary ---
Author Organization [facility] Address [address] [id number] Care Team Providers Care Director Information Name Role Phone Bruno Erickson MD Primary Care Provider Geovanna vailable Reason for Visit * Reason Onset Date Comments Appointment 02/10/2025 Lm on vm to conf irm appt for 02/11 Encounter Details Date Type Department Care Team (Late st Contact Info) Description 02/10/2025 Telephone Obstetrics & Gynecology [address] [place] [address] Carlos Gamboa MD [address] [place] [address] Appointment (Lm on vm to [...] documented as of this encounter Care Teams Director Information Relationship Specialty Start Date End Date Bruno Erickson MD PCP - General Family Medicine 11/13/22 documented as of this encounter
== END 2025-04-03 23:59 | disposition home or self-care (01) ==
LOC: RAD 07:28
PROVIDERS: PCP Family Medicine; Visit Provider Obstetrics & Gynecology
DX: O32.1XX0 Maternal care for breech presentation, not applicable or unspecified (principal); O28.3 Abnormal ultrasonic finding on antenatal screening of mother; O36.8120 Decreased fetal movements, second trimester, not applicable or unspecified; O99.512 Diseases of the respiratory system complicating pregnancy, second trimester; J45.909 Unspecified asthma, uncomplicated; Z3A.27 27 weeks gestation of pregnancy
CPT/HCPCS: 76819